=== PATIENT | female | born 1995 ===

== ENCOUNTER 2019-06-30 23:14 | Emergency (ER) | payer OTHER ==
[~2019-06-30] VITALS: Ht 160 cm; Wt 68.0 kg
[2019-06-30 23:56] VITALS: BP 143/84
[2019-07-01] MEDS ORDERED: IBUPROFEN 600 MG TABLET PO ONE ×2 (00:20→00:30)
== END 2019-07-01 02:29 | disposition home or self-care (01) ==
LOC: ER 23:22
DX: M25.511 Pain in right shoulder (principal); F17.200 Nicotine dependence, unspecified, uncomplicated; F31.9 Bipolar disorder, unspecified; F41.9 Anxiety disorder, unspecified; M54.5 Low back pain; G89.29 Other chronic pain; V43.62XA Car passenger injured in collision with other type car in traffic accident, initial encounter; Y93.89 Activity, other specified; Y92.488 Other paved roadways as the place of occurrence of the external cause; Y99.8 Other external cause status
CPT/HCPCS: 73000-TC; 73030-TC